=== PATIENT | male | born 1985 | race Caucasian/White ===

== ENCOUNTER 2022-01-29 19:17 | Emergency (ER) | payer OTHER, SELFPAY ==
[2022-01-29 19:17] VITALS: BP 124/80; PULSE 86; RESP 18; TEMP 35.8; O2SAT 95; BMI 33.9
--- NOTE | 2022-01-29 19:23 | ED.VIS.LOWEX ---
HPI History of Present Illness Chief Complaint: Lower Extremity Injury Informant: patient Onset/Context/Timing Onset: Today Context: Gradual Onset Quality of Pain: Aching and Throbbing Current Severity: Moderate Maximum Severity: Moderate Narrative Narrative: Patient presents secondary to right ankle pain. Patient rolled his right ankle about 3 hours ago while playing basketball. He states he was initially able to ambulate on it but after sitting at rest now cannot bear weight. He did take ibuprofen shortly after the injury. He denies any other injury. PFSH PFSH Medical History no medical history no medical history Home Medications hydrocodone-acetaminophen 1 tab PO Q6H PRN 3 Days #10 tab 01/29/22 [Rx Last Taken Unknown] Allergy/AdvReac Type Severity Reaction Status Date / Time No Known Allergies Allergy Verified 01/29/22 19:18 Social History Smoking Status: Current every day smoker tobacco type: cigarettes ROS ROS ED Constitutional Constitutional ED: Denies chills or fever(s) Eyes Eyes: Denies change in vision ENT ENT ED: Denies sore throat Cardiovascular Cardiovascular: Denies chest pain Respiratory/Chest Respiratory/Chest: Denies cough or dyspnea Gastrointestinal Gastrointestinal: Denies abdominal pain, nausea or vomiting Musculoskeletal Musculoskeletal: Reports arthralgias; Denies back pain or neck pain Integumentary Denies rash Neurologic Neurologic: Denies headache(s) or paresthesias Allergic/Immunologic Allergic/Immunologic ED: Denies urticaria EXAM Physical Exam Const Vital Signs: 01/29/22 19:17 Temperature 96.5 F L Temperature Source Temporal Pulse Rate 86 Respiratory Rate 18 Blood Pressure 124/80 H Blood Pressure Mean 94 Pulse Ox 95 Oxygen Delivery Method Room Air Positive well nourished and well developed General Appearance ED: well developed HEENT normocephalic and atraumatic Chest Wall inspection of chest normal and palpation of chest normal Resp normal respiratory effort and clear to auscultation bilaterally Cardio regular rate and regular rhythm GI non-tender Palpation: soft Extremity Extremity Narrative: Sinus palpation and edema noted to the lateral malleolus of the right ankle. Strong distal pulses with no tenderness over the foot itself. No tenderness at the proximal fibula or knee. Neuro oriented x3 Sensorium / Orientation: alert Psych mental status grossly normal Skin Lesions: no lesions Rashes: no rashes MDM MDM MDM Narrative Medical decision making narrative: Patient did take ibuprofen prior to arrival. Right ankle x-rays are ordered. Radiography Diagnostic Testing: Clinical Impression(s) from Imaging Studies Ankle X-Ray 01/29/22 19:24 IMPRESSION: Soft tissue swelling overlying the right lateral malleolus but no acute fracture or dislocation of the right ankle. Electronically Signed: Siva Oviedo MD at 19:40 EDT Reading Location ID and State: [facility] / [place] , Service support , Treatment and Re-Evaluation Narrative: Right ankle x-rays from interpretation reveal no bony abnormality. Test results discussed with patient and at bedside. He will be placed in air stirrup splint and given crutches. He may weight-bear as tolerated. He will continue ibuprofen at home and I will write him for short course of [place] for breakthrough pain. Discharge Plan Triage Chief Complaint: Lower Extremity Injury ED Provider: Sravani Calvillo Dx/Rx/DC Orders Clinical Impression: Sprain of ankle, right Instructions: ED Ankle Sprain (Adult) Prescriptions: New hydrocodone-acetaminophen 5-325 mg tablet 1 tab PO Q6H PRN (Reason: pain) 3 Days Qty: 10 RF: 0 Primary Care Provider: Care Physician,No Primary Referrals: Derek Das, [STAFF PHYSICIAN] - 10-14 Days if not better NOT,DEFINED [NON-STAFF] - Disposition Disposition: Home, Self Care
--- NOTE | 2022-01-29 19:24 | RAD_ITS ---
EXAM: XR RIGHT ANKLE COMPLETE, 3 OR MORE VIEWS CLINICAL INDICATION: Right ankle injury. TECHNIQUE: Frontal, lateral and oblique views of the right ankle. This report was created using [employer] report generation technology. COMPARISON: None. FINDINGS: BONES/JOINTS: Unremarkable. No acute fracture. No subluxation. Normal alignment. Preservation of the joint space. No sclerotic or destructive changes observed. SOFT TISSUES: Soft tissue swelling overlying the lateral malleolus. No radiopaque foreign body. RAD/Ankle min 3 Views IMPRESSION: Soft tissue swelling overlying the right lateral malleolus but no acute fracture or dislocation of the right ankle. Electronically Signed: Siva Oviedo MD at 19:40 EDT ,
[2022-01-29] MEDS: HYDROcodone Bitartrate/Apap 5/325 Tablet PO (19:40)
[2022-01-29 20:03] VITALS: PULSE 84; RESP 18; O2SAT 99
== END 2022-01-29 20:20 | disposition home or self-care (01) ==
PROVIDERS: Emergency Provider Emergency Medicine; Visit Provider Emergency Medicine
DX: S93.401A Sprain of unspecified ligament of right ankle, initial encounter (principal); F17.210 Nicotine dependence, cigarettes, uncomplicated; X50.1XXA Overexertion from prolonged static or awkward postures, initial encounter
CPT/HCPCS: 73610; 99283

== ENCOUNTER 2022-02-08 12:59 | Outpatient (CLI) | payer OTHER, SELFPAY ==
--- NOTE | 2022-02-08 13:09 | VDLE_ITS ---
Reason For Study: Pain RIGHT GSV is normal. CFV is compressible, spontaneous, phasic, competent and demonstrates normal augmentation. FV is compressible, spontaneous, phasic, competent and demonstrates normal augmentation. POP V is compressible, spontaneous, phasic, competent and demonstrates normal augmentation. T/P Trunk is compressible. PTV is compressible. RT PerV is compressible. Procedure This is a venous duplex using B-mode, color flow and spectral Doppler. Exam performed in department. A preliminary report was called and/or faxed to [facility]. VL/Venous Duplex US, Unilateral Interpretation Summary Deep veins of the right lower extremity are patent and compressible segmentally . There is no evidence of right lower extremity deep vein thrombosis. Valvular competence cande ears intact within the proximal deep venous system on the right . The right great saphenous vein a ppears patent and compressible segmentally. Ordering Physician: Derek Das Performed By: Stacey Barnett RVT
== END 2022-02-08 23:59 | disposition home or self-care (01) ==
LOC: CVS 13:00
PROVIDERS: Referring Provider Orthopaedic Surgery; Visit Provider Orthopaedic Surgery
DX: M79.661 Pain in right lower leg (principal)
CPT/HCPCS: 93971

== ENCOUNTER → 2023-01-16 | Outpatient (CLI) | payer OTHER, SELFPAY ==
--- NOTE | 2023-01-16 08:16 | NEURO ---
NCS and/or EMG Patient Report Ordering Doctor: Gonzalez Espitia DATE OF SERVICE: 01/16/23 Indication: Pes cavus foot deformity bilaterally, however, no sensory loss or gait imbalance. Investigate for underlying hereditary polyneuropathy. Findings: Nerve conduction studies were performed in the right and left lower extremities. The right peroneal motor study recording the extensor digitorum brevis showed a normal amplitude, normal distal latency and normal conduction velocity. No conduction block or focal slowing was present across the fibular neck. The right tibial motor study recording the abductor hallucis brevis showed a normal amplitude, normal distal latency and normal conduction velocity. The right sural sensory response showed a normal amplitude and conduction velocity. The right superficial peroneal sensory response showed a normal amplitude and conduction velocity. The left peroneal motor study recording the extensor digitorum brevis showed a normal amplitude, normal distal latency and normal conduction velocity. No conduction block or focal slowing was present across the fibular neck. The left tibial motor study recording the abductor hallucis brevis showed a normal amplitude, normal distal latency and normal conduction velocity. The left sural sensory response showed a normal amplitude and conduction velocity. The left superficial peroneal sensory response showed a normal amplitude and conduction velocity. Needle EMG of the right lower extremity muscles was performed. No denervation was present in any muscle. Motor units in the gastrocnemius could not be fully assessed due to limited activation. The other analyzed muscles revealed normal motor unit morphology, activation, and recruitment patterns. Impression: This is a normal study. There is no electrophysiologic evidence of peripheral neuropathy in the bilateral lower extremities. Keyur Plasencia D.O. Multi Select Codes Neurology Neurology Interp Codes: 16554-77 Musc test done w/n test comp (interp) and 90730-92 Nr cndj test 7-8 studies (interp)
== END | disposition home or self-care (01) ==
PROVIDERS: Referring Provider Podiatrist; Visit Provider Podiatrist
DX: G60.8 Other hereditary and idiopathic neuropathies (principal)
CPT/HCPCS: 95886; 95910

== ENCOUNTER 2023-01-24 14:12 | Emergency (ER) | payer OTHER, SELFPAY ==
[2023-01-24 14:12] VITALS: BP 141/83; PULSE 79; RESP 16; TEMP 36.6; O2SAT 99; BMI 33.5
--- NOTE | 2023-01-24 14:31 | EX.ED.GUMALE ---
HPI History of Present Illness Chief Complaint: Male Pain/Injury Detail of Chief Complaint: Left testicular pain and redness since Monday. Informant: patient Pain Onset: Days Context: Gradual Onset Timing: Continuous Current Severity: Mild Maximum Severity: Mild Appearance Lesion(s): No Genital Edema: No Penile Discharge Genital Discharge Amount: None Narrative Narrative: 37-year-old male with no past medical or surgical history. Had gradual onset on Monday of left testicular redness and discomfort. No sudden pain. No trauma. No discharge. No prior history. No dysuria. No fever or chills. Patient is currently on no medications. Prior similar symptoms: No Recent Illness/Hospitalization: No PFSH PFSH Medical History no medical history no medical history Home Medications hydrocodone-acetaminophen 5-325mg 5mg-325mg 1 tab PO Q6H PRN pain 3 days #10 tabs 01/29/22 [Rx Last Taken Unknown] ciprofloxacin HCl 500 mg tablet (Cipro) 500 mg PO BID 10 days #20 tabs 01/24/23 [Rx Last Taken Unknown] Allergy/AdvReac Type Severity Reaction Status Date / Time No Known Allergies Allergy Verified 01/24/23 14:15 Surgical History no surgical history no surgical history Social History Smoking Status: Current every day smoker tobacco type: cigarettes ROS ROS ED ROS Narrative Left testicular discomfort redness. Review of Systems ROS Unobtainable: Denies due to encephalopathy Constitutional Constitutional ED: Denies chills or fever(s) Eyes Eyes: Denies blurry vision ENT ENT ED: Denies ear pain Cardiovascular Cardiovascular: Denies chest pain Respiratory/Chest Respiratory/Chest: Denies cough Gastrointestinal Gastrointestinal: Denies abdominal pain Genitourinary Genitourinary ED: Denies dysuria or hematuria Musculoskeletal Musculoskeletal: Denies arthralgias Integumentary Denies abscess or rash Neurologic Neurologic: Denies headache(s) Psychiatric Psychiatric: Denies anxiety Endocrine Endocrinology: Denies polydipsia Hematologic/Lymphatic Hematologic/Lymphatic: Denies easy bleeding or easy bruising Allergic/Immunologic Allergic/Immunologic ED: Denies mouth swelling or tongue swelling EXAM Physical Exam Narrative Exam Narrative: 37-year-old male no acute distress. Vital signs stable afebrile. I am seeing the patient in triage room 2. Due to the amount of patient's currently and no other beds are available. H NT exam unremarkable. Lungs are clear. Heart regular rhythm no murmur. Abdomen soft nontender. Normal bowel sounds. External exam circumcised male. Left hemiscrotum and testicle is mildly swollen and tender consistent with an orchitis. There is no obvious hernia. No palpable mass. No signs of torsion. Both testicles are about at the same position. There is no Calderon Clapper deformity. Patient is moving all 4 extremities. He is awake and alert. Const Vital Signs: 01/24/23 14:12 Temperature 98 F Temperature Source Temporal Pulse Rate 79 Respiratory Rate 16 Blood Pressure 141/83 H Blood Pressure Mean 102 Pulse Ox 99 Oxygen Delivery Method Room Air Positive well nourished and well developed; Negative for cachectic, contractures or unkempt General Appearance ED: well developed and NAD; Negative for unkempt, cachectic or contractures Nutritional Appearance: Negative for cachectic HEENT Reports moist mucous membranes; Denies dry mucous membranes normocephalic; Negative for atraumatic, trauma or tenderness Mouth ED: No dry mucous membranes Mouth: No dry mucous membranes Eyes PERRL and EOMs intact bilaterally General Eye ED: Negative for pale conjunctiva or scleral icterus Neck no lymphadenopathy, supple and no JVD General: Negative for tenderness Resp normal respiratory effort and clear to auscultation bilaterally Effort and Inspection: Negative for retractions Auscultation: Negative for rales, rhonchi or wheezes Cardio regular rate, regular rhythm, S1 normal heart sound, S2 normal heart sound and no murmurs Rate: Negative for bradycardia or tachycardic Rhythm: Negative for abnormal rhythm GI non-tender, non-distended and no masses Inspection: Negative for abdominal distention Auscultation: normoactive bowel sounds Palpation: soft; Negative for tender or guarding no CVA tenderness Narrative: Left hemiscrotal mild redness. Left testicular tenderness and swelling. Normal position. No Calderon Clapper deformity. No hernia. Exam consistent with an orchitis. Bladder / Kidney Exam: No CVA tenderness Groin / Perineum Exam: Negative for edema Back/Spine no CVA tenderness General Back: Negative for CVA tenderness Cervical Spine: Negative for cervical spine tenderness Thoracic Spine / Upper Back: Negative for thoracic spinal tenderness Lumbar Spine / Lower Back: Negative for lumbar spinal tenderness Extremity normal to inspection General Extremety ED: Negative for edema General Extremity: Negative for edema Neuro oriented x3, CN's II-XII intact bilaterally, moves all extremities and no focal motor deficits Sensorium / Orientation: alert, oriented to person, oriented to place and oriented to time; Negative for orientation impaired, confused, lethargic or stuporous Motor Exam: strength 5/5 throughout Psych mental status grossly normal Appearance: Negative for unkempt Attitude: No agitated Mood & Affect: Negative for depressed Thought Process: normal thought process Thought Content: normal thought content Skin General Skin Exam: Negative for jaundice Lesions: no lesions Rashes: no rashes MDM MDM MDM Narrative Medical decision making narrative: 37-year-old male left-sided testicular discomfort and redness consistent with orchitis. Clinically this does not appear to be nor historically as is a torsion. I discussed treatment options with the patient. He did not want to wait at this time for an ultrasound and clinically I do not think is necessary. He will be started on Cipro 500 twice daily for 10 days. He will be given his first dose here. Follow-up with either his primary care physician or Dr. Cortes Rodrigues of urology for repeat evaluation. He knows to return if he is feeling worse or if this area is looking worse. Discharge Plan Triage Chief Complaint: Male Pain/Injury ED Provider: Casper Benavides Dx/Rx/DC Orders Clinical Impression: Acute orchitis Instructions: ED Orchitis Prescriptions: New ciprofloxacin HCl [Cipro] 500 mg tablet 500 mg PO BID 10 Days Qty: 20 0RF No Action hydrocodone-acetaminophen 5-325 mg tablet 1 tab PO Q6H PRN (Reason: pain) 3 Days Qty: 10 0RF Primary Care Provider: Care Physician,No Primary Referrals: Kevin Rodrigues MD [Med Staff - Active Staff] - 3-5 Days if not improving Care Physician,No Primary [Primary Care Provider] - Activity Restrictions/Additional Instructions: Motrin and Tylenol for pain. Wear underwear provides support which will decrease the discomfort. The antibiotics Cipro 1 pill twice a day for 10 days. This will treat the infection. Clinically this is a left testicular infection. Follow-up with the urologist if this is not improving. Return immediately if you are feeling worse such as fever or if the area is looking worse. It will take the antibiotics several days to kick in. Try to get a second dose of antibiotic in tonight. The prescription was sent [facility]. Disposition Disposition: Home, Self Care
[2023-01-24] MEDS: Ciprofloxacin 500 MG Tablet PO (14:44)
== END 2023-01-24 14:48 | disposition home or self-care (01) ==
LOC: ED 14:43
PROVIDERS: Emergency Provider Emergency Medicine; Visit Provider Emergency Medicine
DX: N45.2 Orchitis (principal); F17.210 Nicotine dependence, cigarettes, uncomplicated
CPT/HCPCS: 99282